=== PATIENT | male | born 1985 | race American Indian/Alaskan Native ===

== ENCOUNTER 2017-06-08 16:39 | Emergency (ER) | payer SELFPAY ==
--- NOTE | 2017-06-08 18:30 | Emergency Department Report ---
ED Lower Extremity HPI - General Chief Complaint: Extremity Injury, Lower Stated Complaint: LEFT FOOT PAIN Time Seen by Provider: 06/08/17 17:21 Source: patient Mode of arrival: Ambulatory Limitations: No Limitations - History of Present Illness Initial Comments: 31-year-old male past medical history none presents with complaint of left foot pain. Patient states that he had an accident at work where a heavy pallet fell on his left foot. Patient states he was treated by a physician had an x-ray done which was abnormal which is why he came to the ED today. Patient is wearing a Unna boot. States he sustained a long deep abrasion to his left anterior mcnamara. Patient is ambulatory with Unna boot. Pain is minimal. Has abrasion wrapped with gauze. Denies fevers or chills. States he was placed on antibiotics. Does not know his tetanus status. MD Complaint: foot injury Onset/Timin Injury: Foot: Left Place: home Severity: moderate Severity scale (0 -10): 3 Improves With: nothing Worsens With: nothing Context: direct blow Other Symptoms: loss of consciousness Associated Symptoms: swelling, ambulatory Treatments Prior to Arrival: cold therapy - Related Data Previous Rx's Medication Instructions Recorded Last Taken Type Cyclobenzaprine [Flexeril] 10 mg PO BID PRN #12 tablet 10/11/13 Unknown Rx Ibuprofen [Motrin] 800 mg PO Q8H PRN #14 tablet 10/11/13 Unknown Rx Naproxen 500 mg PO BID PRN #30 tablet 06/08/17 Unknown Rx traMADol [Ultram 50 MG tab] 50 mg PO Q6HR PRN #14 tablet 06/08/17 Unknown Rx Allergies Allergy/AdvReac Type Severity Reaction Status Date / Time No Known Allergies Allergy Unverified 10/11/13 21:12 ED Review of Systems ROS: Stated complaint: LEFT FOOT PAIN Other details as noted in HPI Constitutional: denies: chills, fever Eyes: denies: eye pain, eye discharge, vision change ENT: denies: ear pain, throat pain Respiratory: denies: cough, shortness of breath, wheezing Cardiovascular: denies: chest pain, palpitations Endocrine: no symptoms reported Gastrointestinal: denies: abdominal pain, nausea, diarrhea Genitourinary: denies: urgency, dysuria Musculoskeletal: as per HPI. denies: back pain, joint swelling, arthralgia Skin: denies: rash, lesions Neurological: denies: headache, weakness, paresthesias Psychiatric: denies: anxiety, depression Hematological/Lymphatic: denies: easy bleeding, easy bruising ED Past Medical Hx - Past Medical History Previous Medical History?: No - Surgical History Past Surgical History?: Yes Additional Surgical History: Right collar bone - Social History Smoking Status: Never Smoker Substance Use Type: Alcohol - Medications Home Medications: Home Medications Medication Instructions Recorded Confirmed Last Taken Type Cyclobenzaprine [Flexeril] 10 mg PO BID PRN #12 tablet 10/11/13 Unknown Rx Ibuprofen [Motrin] 800 mg PO Q8H PRN #14 tablet 10/11/13 Unknown Rx Naproxen 500 mg PO BID PRN #30 tablet 06/08/17 Unknown Rx traMADol [Ultram 50 MG tab] 50 mg PO Q6HR PRN #14 tablet 06/08/17 Unknown Rx ED Physical Exam - General Limitations: No Limitations General appearance: alert, in no apparent distress - Head Head exam: Present: atraumatic, normocephalic - Eye Eye exam: Present: normal appearance, PERRL, EOMI - ENT ENT exam: Present: mucous membranes moist - Neck Neck exam: Present: normal inspection - Respiratory Respiratory exam: Present: normal lung sounds bilaterally. Absent: respiratory distress - Cardiovascular Cardiovascular Exam: Present: regular rate, normal rhythm. Absent: systolic murmur, diastolic murmur, rubs, gallop - GI/Abdominal GI/Abdominal exam: Present: soft, normal bowel sounds - Rectal Rectal exam: Present: deferred - Extremities Exam Extremities exam: Present: normal inspection - Expanded Lower Extremity Exam Right Hip exam: Present: normal inspection, full ROM Upper Leg exam: Present: normal inspection, full ROM Knee exam: Present: normal inspection, full ROM Lower Leg exam: Present: abrasion (vertical abrasion along the anterior left mcnamara. Covered with gauze. I unwrapped it.) Ankle exam: Present: normal inspection, full ROM Foot/Toe exam: Present: tenderness (some tenderness mid foot with mild swelling. Small circular abrasion on dorsal aspect of foot) Neuro vascular tendon exam: Present: no vascular compromise (distal dorsalis pedis and posterior tibial pulses intact. Distal capillary refill less than one second all toes.) Gait: Positive: antalgic 1 - Vertical abrasion along the left anterior mcnamara 1 - Abrasion site here - Back Exam Back exam: Present: normal inspection - Neurological Exam Neurological exam: Present: alert, oriented X3, CN II-XII intact, abnormal gait (slightly antalgic gait. Patient is wearing Dorota boot.) - Psychiatric Psychiatric exam: Present: normal affect, normal mood - Skin Skin exam: Present: warm, dry, intact, normal color. Absent: rash ED Course Vital Signs 06/08/17 06/08/17 16:42 19:36 Temperature 98.2 F Pulse Rate 98 H Respiratory 18 18 Rate Blood Pressure 149/83 O2 Sat by Pulse 100 Oximetry ED Lower Extremity MDM - Medical Decision Making A/P: Small avulsion fracture left foot. Deep abrasion. 1-tetanus updated today. Patient already on antibiotics. I instructed patient on acute wound care. Topical antibiotic ointment. 2-I informed patient that his x-ray was normal but his CT showed a tiny avulsion fracture and dorsal aspect of first metatarsal. Patient already has crutches and an Dorota boot. 3-follow-up with podiatry and orthopedics. I gave patient referral information for both. 4-left lower extremity neurovascularly intact on clinical exam. Good distal sensation and good distal pulses no signs of infection on clinical inspection no signs of cellulitis no purulent drainage. Critical care attestation.: If time is entered above; I have spent that time in minutes in the direct care of this critically ill patient, excluding procedure time. ED Disposition Clinical Impression: Abrasion, left lower leg, initial encounter Avulsion fracture of metatarsal bone of left foot Qualifiers: Encounter type: initial encounter Fracture type: closed Qualified Code(s): S92.302A - Fracture of unspecified metatarsal bone(s), left foot, initial encounter for closed fracture Disposition: - TO HOME OR SELFCARE Is pt being admited?: No Does the pt Need Aspirin: No Condition: Stable Instructions: Foot Fracture in Adults (ED), RICE Therapy (ED), Abrasion (ED), Acute Wound Care (ED) Additional Instructions: [email or web address] Prescriptions: Naproxen 500 mg PO BID PRN #30 tablet PRN Reason: Pain traMADol [Ultram 50 MG tab] 50 mg PO Q6HR PRN #14 tablet PRN Reason: Pain Referrals: [facility] [Provider Group] - 3-5 Days Time of Disposition: 21:31
[2017-06-08] MEDS ORDERED: NORCO 5/325 PO ONE (19:26)
--- NOTE | 2017-06-08 19:41 | XRay Report ---
FINAL REPORT EXAM: XR FOOT 3+V LT HISTORY: left foot pain ? fracture COMPARISONS: None. FINDINGS: Three nonweightbearing views left foot Mild dorsal soft tissue swelling over the forefoot. No bone lesion, periosteal reaction, or fracture. No deformity or gross malalignment. IMPRESSION: Mild forefoot soft tissue swelling is present without fracture identified. Consider additional imaging for worsening/persistent symptoms.
--- NOTE | 2017-06-08 20:59 | Cat Scan Report ---
FINAL REPORT EXAM: CT LOWER EXTREMITY LT WO CON HISTORY: possible mid foot fracture s/p heavy object hittin COMPARISON: Plain films of the left foot from the same date. TECHNIQUE: Contiguous axial images were obtained. Additional sagittal and coronal reformatted images were obtained. FINDINGS: Ankle mortise, subtalar joint space, articulation of the tarsal bones, tarsal metatarsal joints, MTP joints and interphalangeal joints are preserved. There is a 4 x 2 millimeter bony fragment at the dorsum and base of the 1st metatarsal bone concerning for tiny avulsive injury (series 3, image 63 series 201, image 23). Otherwise, bony structures are intact. No other acute fracture. IMPRESSION: Tiny avulsive fracture fragment at the dorsal base of the 1st metatarsal bone.
[2017-06-08] MEDS ORDERED: BOOSTRIX IM ONE (21:27)
[2017-06-08 22:01] VITALS: BP 143/80
== END 2017-06-08 22:01 | disposition home or self-care (01) ==
LOC: ED 16:39
DX: S92.302A Fracture of unspecified metatarsal bone(s), left foot, initial encounter for closed fracture (principal); S80.812A Abrasion, left lower leg, initial encounter; W22.8XXA Striking against or struck by other objects, initial encounter; Y93.89 Activity, other specified; Y99.8 Other external cause status; Y92.69 Other specified industrial and construction area as the place of occurrence of the external cause
CPT/HCPCS: 90471; 90715; 99284